=== PATIENT | male | born 1935 | race Two or more races ===

== ENCOUNTER 2019-08-29 15:04 | Inpatient (IN) | payer OTHER ==
[~2019-08-29] VITALS: Ht 177.8 cm; Wt 61.4 kg
[2019-08-29] MEDS ORDERED: ACETAMINOPHEN 325 MG TAB PO ONE ×2 (15:24→15:45)
[2019-08-29 15:44] LABS: Basophils # (auto) 0 10 ^3/uL (0-0.2); Basophils % (auto) 0.6 % (0.0-2.0); Eosinophils # (auto) 0 10 ^3/uL (0-0.8); Eosinophils % (auto) 0.1 % (0.0-7.0); Hematocrit 33.7 % (41.0-53.0); Hemoglobin 11.2 g/dL (13.5-17.5); Lymphocytes # (auto) 0.8 10 ^3/uL (0.4-5.4); Lymphocytes % (auto) 11.5 % (10.0-50.0); Mean Corpuscular Hemoglobin 31.2 pg (28.0-32.0); Mean Corpuscular Hgb Conc. 33.3 g/dL (32.0-36.0); Mean Corpuscular Volume 93.9 fL (80.0-100.0); Monocytes # (auto) 0.3 10 ^3/uL (0-1.3); Monocytes % (auto) 5.2 % (0.0-12.0); Neutrophils # (auto) 5.4 10 ^3/uL (1.6-8.6); Neutrophils % (auto) 82.6 % (37.0-80.0); Platelet Count (auto) 180 10^3/uL (140-450); Red Blood Cells 3.59 10^6/uL (4.5-5.90); Red Cell Distribution Width 15.3 % (11.8-14.3); White Blood Cell 6.6 10^3/uL (4.4-10.8)
[2019-08-29] MEDS ORDERED: cefTRIAXone 1GM/50ML D5W 50 ML IV ONE ×2 (15:44→15:45)
[2019-08-29] MEDS ORDERED: AZITHROMYCIN 500MG/ 250ML 250 ML IV ONE ×2 (15:45)
[2019-08-29 16:02] LABS: Alanine Aminotransferase 23 U/L (16-61); Albumin 3.6 g/dL (3.4-5.0); Anion Gap 4 (5-15); Aspartate Aminotransferase 37 U/L (15-37); BUN/Creatinine Ratio 17.6; Blood Urea Nitrogen 37 mg/dL (7-18); Calcium 8.2 mg/dL (8.5-10.1); Carbon Dioxide 21 mmol/L (21-32); Chloride 114 mmol/L (98-107); GFR African American 39 mL/min; GFR Non-African American 32 mL/min; Glucose 131 mg/dL (74-106); Magnesium 2.4 mg/dL (1.6-2.6); Potassium 4.9 mmol/L (3.5-5.1); Sodium 139 mmol/L (136-145)
[2019-08-29 16:07] LABS: Alkaline Phosphatase 76 U/L (45-117); Bilirubin, Total 0.3 mg/dL (0.2-1.0); Total Protein 7.9 g/dL (6.4-8.2)
[2019-08-29 16:10] LABS: Lactate Dehydrogenase 263 U/L (87-241)
[2019-08-29 16:27] LABS: Urine Bacteria NONE SEEN /hpf (None Seen); Urine Blood 1+ /uL (Negative); Urine Specific Gravity 1.018 (1.001-1.035); Urine WBC 1 /hpf (0 - 3)
[2019-08-29] MEDS: LORazepam 2MG/ML-1ML VIAL IM ONE ×2 (16:30→16:34)
[2019-08-29] MEDS ORDERED: MORPHINE SULF INJ 2 MG/ML SYRINGE 1ML ONE (17:58)
[2019-08-29] MEDS ORDERED: MORPHINE SULF INJ 2 MG/ML SYRINGE 1ML IV ONE ×2 (18:00→18:15)
[2019-08-29] MEDS ORDERED: diphenhdrAMINE HCL 50 MG/1 ML VL ONE (18:02)
[2019-08-29] MEDS ORDERED: NITROGLYCERIN 0.4 MG SL TAB SL PRN (18:15)
[2019-08-29] MEDS ORDERED: ACETAMINOPHEN 500 MG TAB PO PRN (18:15)
[2019-08-29] MEDS ORDERED: diphenhdrAMINE HCL 50 MG/1 ML VL IV ONE (18:15)
[2019-08-29] MEDS ORDERED: methylPREDNISolone SOD SUCC 125 MG/2 ML VL IV ONE (18:15)
[2019-08-29] MEDS: HYDROcodone-ACET 5/325MG TAB PO PRN (19:08)
[2019-08-29 20:38] LABS: Creatinine, Urine 72 mg/dL (30.0-125.0); Sodium Urine 113 mmol/L (40-220)
[2019-08-29] MEDS ORDERED: ALBUTEROL SULF HFA 90MCG INH 200DOSE IN SCH (22:00)
[2019-08-29] MEDS: DOXYCYCLINE 100MG/250ML 250 ML IV SCH (23:30)
[2019-08-30] MEDS: HYDROcodone-ACET 5/325MG TAB PO PRN ×3 (00:07→20:55)
[2019-08-30] MEDS ORDERED: cloNIDine HCL 0.1 MG TAB PO ONE (04:15)
[2019-08-30 06:29] LABS: Basophils # (auto) 0 10 ^3/uL (0-0.2); Basophils % (auto) 0.1 % (0.0-2.0); Eosinophils # (auto) 0 10 ^3/uL (0-0.8); Hematocrit 32.1 % (41.0-53.0); Hemoglobin 10.6 g/dL (13.5-17.5); Lymphocytes # (auto) 0.4 10 ^3/uL (0.4-5.4); Lymphocytes % (auto) 8.3 % (10.0-50.0); Mean Corpuscular Hemoglobin 30.7 pg (28.0-32.0); Mean Corpuscular Hgb Conc. 33.1 g/dL (32.0-36.0); Mean Corpuscular Volume 92.9 fL (80.0-100.0); Monocytes # (auto) 0.1 10 ^3/uL (0-1.3); Monocytes % (auto) 1.4 % (0.0-12.0); Neutrophils # (auto) 4.8 10 ^3/uL (1.6-8.6); Neutrophils % (auto) 90.2 % (37.0-80.0); Platelet Count (auto) 165 10^3/uL (140-450); Red Blood Cells 3.46 10^6/uL (4.5-5.90); White Blood Cell 5.3 10^3/uL (4.4-10.8)
[2019-08-30 06:54] LABS: Albumin 3.1 g/dL (3.4-5.0); BUN/Creatinine Ratio 20.7; Calcium 8.1 mg/dL (8.5-10.1); Potassium 4.1 mmol/L (3.5-5.1)
[2019-08-30 06:57] LABS: Bilirubin, Total 0.2 mg/dL (0.2-1.0)
[2019-08-30 08:41] VITALS: BP 151/69
--- NOTE | 2019-08-30 08:41 | NUR ---
ARRIVAL NOTE: PATIENT BROUGHT UP BY WHEELCHAIR, PATIENT A&OX4. ASSISTED TO BED. ON TELE MONITOR #4. RUNNING SINUS RHYTHM IN THE 90'S. OREINTED TO [facility]. PATIENT DENIES ANY SOB. PATIENT REPORTS HISTORY OF STROKE. ASPIRATION PRECAUTIONS IN PLACE. FALL PRECAUTIONS IN PLACE. ROBLES CATHETER IN PLACE. UPDATED ON POC. BED IN LOWEST LOCKED POSITION WITH CALL LIGHT WITHIN REACH.
[2019-08-30] MEDS ORDERED: LEVO88TA4 PO (10:27)
[2019-08-30] MEDS ORDERED: ASPI-231 PO (10:27)
[2019-08-30] MEDS ORDERED: ATOR20TA50 PO (10:27)
[2019-08-30] MEDS ORDERED: CLOP75TA28 PO (10:27)
[2019-08-30] MEDS ORDERED: GABA300C10 PO (10:27)
[2019-08-30] MEDS ORDERED: LISI-275 PO (10:27)
[2019-08-30] MEDS ORDERED: HYDR-4833 PO (10:27)
[2019-08-30] MEDS: ZINC SULFATE 220mg CAP or TAB PO SCH (10:57)
[2019-08-30] MEDS: DOXYCYCLINE 100MG/250ML 250 ML IV SCH (10:57)
[2019-08-30] MEDS: FUROSEMIDE 20 MG TAB PO SCH (10:58)
[2019-08-30] MEDS: ASCORBIC ACID 1,000 MG TAB PO SCH (10:58)
[2019-08-30] MEDS: CHOLECALCIFEROL (VITD3) 1,000UNIT=25mCg TAB PO SCH (10:59)
[2019-08-30] MEDS: ENOXAPARIN SOD 30 MG/0.3 ML SYRINGE SC SCH (10:59)
[2019-08-30] MEDS ORDERED: AZITHROMYCIN 250 MG TAB PO ONE (12:45)
--- NOTE | 2019-08-30 12:47 | NUR ---
CALLED [facility] REGARDING VQ SCAN. AWAITING CALL BACK.
[2019-08-30 13:00] VITALS: BP 135/52
--- NOTE | 2019-08-30 13:26 | NUR ---
PER [facility] FROM [facility]. THEY WILL NOT DO A VQ SCAN ON PATIENT.
--- NOTE | 2019-08-30 15:10 | NUR ---
DEE TYSON TO INFORM THAT VQ SCAN WILL NOT BE DONE [facility].
--- NOTE | 2019-08-30 17:48 | NUR ---
Alicia MAS AT BEDSIDE. INFORMED OF PATIENT STATUS INCLUDING VITAL SIGNS AND PATIENTS ELEVATED D-DIMER AND ROBLES CATHETER. RECEIVED ORDERS TO D/C ROBLES CATHETER.
[2019-08-30 18:00] VITALS: BP 158/77
--- NOTE | 2019-08-30 18:30 | NUR ---
Marroquin catheter dc'd Order to discontinue marroquin catheter. Marroquin dc'd with clean technique following deflation of balloon. Patient tolerated well with no complaints of pain. Continue care.
--- NOTE | 2019-08-30 19:00 | NUR ---
Opening Shift Note Assumed care of patient, awake and alert. No S/S of distress/SOB or pain. Safety measures in place bed in lowest position, side rails up x2, fall alarm on, and call light within reach. Instructed on POC and to call for assist PRN, will continue to monitor for changes Q1hr and PRN.
[2019-08-30] MEDS: amLODIPine BESYLATE 5 MG TAB PO SCH (20:54)
[2019-08-30] MEDS: LISINOPRIL 10 MG TAB PO SCH (20:54)
--- NOTE | 2019-08-30 23:30 | NUR ---
Patient changed rooms. Patient now located in [id number]. optoelectronic technician notified.
[2019-08-31 05:00] VITALS: BP 158/87
[2019-08-31 06:14] LABS: Basophils # (auto) 0 10 ^3/uL (0-0.2); Basophils % (auto) 0.2 % (0.0-2.0); Eosinophils # (auto) 0 10 ^3/uL (0-0.8); Eosinophils % (auto) 0.2 % (0.0-7.0); Hematocrit 37.1 % (41.0-53.0); Hemoglobin 12.3 g/dL (13.5-17.5); Lymphocytes # (auto) 1.3 10 ^3/uL (0.4-5.4); Lymphocytes % (auto) 10.8 % (10.0-50.0); Mean Corpuscular Hemoglobin 30.7 pg (28.0-32.0); Mean Corpuscular Hgb Conc. 33.2 g/dL (32.0-36.0); Mean Corpuscular Volume 92.4 fL (80.0-100.0); Monocytes # (auto) 0.4 10 ^3/uL (0-1.3); Monocytes % (auto) 3.2 % (0.0-12.0); Neutrophils # (auto) 10.6 10 ^3/uL (1.6-8.6); Neutrophils % (auto) 85.6 % (37.0-80.0); Nucleated Red Blood Cells % 0.2 %; Platelet Count (auto) 204 10^3/uL (140-450); Red Blood Cells 4.01 10^6/uL (4.5-5.90); Red Cell Distribution Width 14.8 % (11.8-14.3); White Blood Cell 12.4 10^3/uL (4.4-10.8)
[2019-08-31 06:24] LABS: Calcium 8.5 mg/dL (8.5-10.1); Potassium 3.8 mmol/L (3.5-5.1)
[2019-08-31 06:26] LABS: BUN/Creatinine Ratio 19.3
--- NOTE | 2019-08-31 07:00 | NUR ---
Opening Shift Note Assumed care of patient, awake and alert. No S/S of distress/SOB or pain. Instructed on POC and to call for assist PRN, will continue to monitor for changes Q1hr and PRN.
--- NOTE | 2019-08-31 07:56 | NUR ---
Respiratory note: PT AWAKE, AND ALERT. NO RESPIRATORY DISTRESS NOTED. SPO2 95% ON RA, HR 100, RR 17, BS CLEAR/DIMINISHED BILATERALLY. NO FURTHER RESPIRATORY INTERVENTION INDICATED AT THIS TIME. WILL CONTINUE TO MONITOR PT.
[2019-08-31] MEDS: HYDROcodone-ACET 5/325MG TAB PO PRN (07:57)
[2019-08-31] MEDS: ZINC SULFATE 220mg CAP or TAB PO SCH (09:52)
[2019-08-31] MEDS: FUROSEMIDE 20 MG TAB PO SCH (09:53)
[2019-08-31] MEDS: amLODIPine BESYLATE 5 MG TAB PO SCH (09:53)
[2019-08-31] MEDS: LISINOPRIL 10 MG TAB PO SCH (09:54)
[2019-08-31] MEDS: ASCORBIC ACID 1,000 MG TAB PO SCH (09:54)
[2019-08-31] MEDS: CHOLECALCIFEROL (VITD3) 1,000UNIT=25mCg TAB PO SCH (09:54)
[2019-08-31] MEDS: ENOXAPARIN SOD 30 MG/0.3 ML SYRINGE SC SCH (09:55)
[2019-08-31] MEDS ORDERED: AZITHROMYCIN 250 MG TAB PO SCH (10:00)
[2019-08-31] MEDS ORDERED: amLODIPine BESYLATE 5 MG TAB PO ONE (15:45)
[2019-08-31] MEDS ORDERED: PANTOPRAZOLE 40 MG TAB PO SCH (15:45)
[2019-08-31] MEDS ORDERED: HYDROcodone-ACET 5/325MG TAB PO PRN ×4 (15:45→16:15)
[2019-08-31] MEDS ORDERED: ASPirin-EC 81 mg tab PO SCH (15:45)
[2019-08-31] MEDS ORDERED: CLOPIDOGREL BISULFATE 75 MG TAB PO SCH (15:45)
--- NOTE | 2019-08-31 15:50 | NUR ---
SPOKE TO DR. DE LA FUENTE GAVE CLEARANCE FOR DISCHARGE. Addendum: 08/31/19 at 1620 by Krystal Arroyo RN DR. DE LA FUENTE DC'D HYDROXYCHLOROQUINE. AND PATIENT DOES NOT NEED ANY ANTICOAGULANTS TO BE DC'D HOME
--- NOTE | 2019-08-31 16:01 | NUR ---
SPOKE WITH DR. ZAPATA PATIENT IS STABLE FROM NEPHROLOGY STANDPOINT. CLEAR FOR DISCHARGE.
[2019-08-31] MEDS ORDERED: CHOL1000 PO (16:07)
[2019-08-31] MEDS ORDERED: AML5T PO (16:07)
[2019-08-31] MEDS ORDERED: FUR20T PO (16:07)
[2019-08-31] MEDS ORDERED: ASCO10003 PO (16:07)
[2019-08-31] MEDS ORDERED: ZINC220T6 PO (16:07)
[2019-08-31] MEDS ORDERED: LISI-275 PO (16:07)
[2019-08-31] MEDS ORDERED: AZIT250T9 PO (16:07)
--- NOTE | 2019-08-31 17:34 | NUR ---
DISCHARGE PAPERWORK AND NEW PRESCRIPTIONS GIVEN TO PATIENT. PATIENT AND FAMILY VERBALIZED UNDERSTANDING. PATIENT UNABLE TO SIGN DUE TO ISOLATION PRECAUTIONS.
[2019-08-31] MEDS ORDERED: ATORVASTATIN 20 MG TAB PO SCH (22:00)
[2019-09-01] MEDS ORDERED: LEVOTHYROXINE SODIUM 50 MCG TAB PO SCH (07:00)
[2019-09-01] MEDS ORDERED: amLODIPine BESYLATE 5 MG TAB PO SCH (10:00)
[2019-09-01] MEDS ORDERED: POTASSIUM CHL 10 Meq TABLET PO SCH (10:00)
[2019-09-01] MEDS ORDERED: GABAPENTIN 300 MG CAP PO SCH (10:00)
== END 2019-08-31 18:30 | disposition home or self-care (01) | DRG 177 ==
LOC: ER 15:04 → TELE 15:05 → TELE-E-ADS 08-30 08:39 → TELE-EAST 08-30 15:27
PROVIDERS: ADMIT Nurse Practitioner Acute Care; ATTEND Internal Medicine
DX: U07.1 COVID-19 (principal); K65.0 Generalized (acute) peritonitis; J12.89 Other viral pneumonia; J96.01 Acute respiratory failure with hypoxia; N17.9 Acute kidney failure, unspecified; N18.3 Chronic kidney disease, stage 3 (moderate); E03.9 Hypothyroidism, unspecified; D64.9 Anemia, unspecified; G89.29 Other chronic pain; I12.9 Hypertensive chronic kidney disease with stage 1 through stage 4 chronic kidney disease, or unspecified chronic kidney disease; M54.9 Dorsalgia, unspecified; K21.9 Gastro-esophageal reflux disease without esophagitis; Z79.02 Long term (current) use of antithrombotics/antiplatelets; Z79.82 Long term (current) use of aspirin; Z79.891 Long term (current) use of opiate analgesic; Z82.3 Family history of stroke; Z82.49 Family history of ischemic heart disease and other diseases of the circulatory system; Z88.5 Allergy status to narcotic agent
CPT/HCPCS: 36415; 71045; 80048; 80053; 81001; 82570; 82728; 83605; 83615; 83735; 84300; 84443; 84484; 85025; 85379; 86141; 87040; 87070; 87804; 87880; 93005; 93970; G0378; J0696; J3490